=== PATIENT | male | born 1970 | race Caucasian/White ===

== ENCOUNTER 2017-03-07 16:57 | Emergency (ER) | payer OTHER ==
[2017-03-07 17:04] VITALS: RESP 16; TEMP 97.5
--- NOTE | 2017-03-07 17:06 | EDPHY ---
H & P Stated Complaint: Sharp pain under L axilla;also has "lump in throat" HPI/ROS: HPI CHIEF COMPLAINT: Chest pain HISTORY OF PRESENT ILLNESS: This patient is a 46-year-old male significant past medical history for GERD and sinus disease, he presents emergency room with chest discomfort. He describes it as a sharp stabbing pain left side of his chest but additionally he has a pressure dull ache in the center of his chest does not radiate. He also tells me has achiness in bilateral arms. He denies referral pain. Denies shortness of breath. Denies nausea vomiting denies diaphoresis. Denies abdominal pain or neck pain. Main complaint is discomfort in the center of his chest he describes as a lump in his throat or dull ache pressure. This discomfort started around 11:48 a.m. while he was driving. Persistent. Getting worse. Past Medical History: GERD, sinus disease, obesity Past Surgical History: No significant surgical history Social History: Denies daily use of drugs alcohol tobacco products, lives in [place], works in IT. Family History: No significant cardiac family history. No premature cardiac disease. ROS REVIEW OF SYSTEMS: A comprehensive 10 point review of systems is otherwise negative aside from elements mentioned in the history of present illness. Exam Constitutional appears well nontoxic, slightly anxious triage nursing summary reviewed, vital signs reviewed, awake/alert. Eyes normal conjunctivae and sclera, EOMI, PERRLA. HENT normal inspection, atraumatic, moist mucus membranes, no epistaxis, neck supple/ no meningismus, no raccoon eyes. Respiratory clear to auscultation bilaterally, normal breath sounds, no respiratory distress, no wheezing. Cardiovascular rate normal, regular rhythm, no murmur, no edema, distal pulses normal. Gastrointestinal soft, non-tender, no rebound, no guarding, normal bowel sounds, no distension, no pulsatile mass. Genitourinary no CVA tenderness. Musculoskeletal no midline vertebral tenderness, full range of motion, no calf swelling, no tenderness of extremities, no meningismus, good pulses, neurovascularly intact. Skin pink, warm, & dry, no rash, skin atraumatic. Neurologic awake, alert and oriented x 3, AAOx3, moves all 4 extremities equally, motor intact, sensory intact, CN II-XII intact, normal cerebellar, normal vision, normal speech. Psychiatric normal mood/affect. Heme/Lymph/Immune no lymphadenopathy. 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 Re-evaluation: EKG interpretation by me on record in [employer] system. Impression time of EKG 17 30, this is sinus rhythm rate of 71 T-wave abnormality V3. I do not appreciate ST elevation or significant ST depression. QRS is narrow. I do not appreciate acute ischemia on this EKG. 1801: Re-evaluation at this time this patient's chest discomfort went from a 4/ 10 to 2/10 with 1 dose of nitroglycerin. 1849: I did speak with the patient is chest pain-free at this time. He has agreed to stay in the hospital for cardiac evaluation ACS rule out. I have no indication that he is having acute coronary syndrome here at this time. EKG is nonischemic troponin negative D-dimer negative chest x-ray has been reviewed shows cardiomegaly otherwise unremarkable. Patient has receive full-dose aspirin. Chest pain did improve nitroglycerin. Reason for admission is chest pain risk factor for obesity and clinical story. Improved with nitroglycerin. EKG interpretation by me on record in [employer] system. Impression Time of EKG 2118: 2203: This patient is now refusing hospital admission for chest pain evaluation. Had 2 troponins here that are negative. 2 nonischemic EKGs. I still recommend that he gets admitted to the hospital given his story. And risk factors. The hospitalist service did go to see and evaluate the patient however refused hospital admission. I went spoke at length with him about reasons for admission. He understands that he can have great morbidity and great mortality have sudden cardiac or severe neurological dysfunction if he does not get admitted to the hospital. He understands the risk of this. He has capacity make this decision. He still abdomen about leaving. He does understand that he had a preliminary normal cardiac evaluation here in the emergency room however there is still further testing to be done. He does understand if he develops chest pain or shortness of breath or does not feel well tonight to immediately go return to the emergency room. He will need to sign out against medical advice and is fine with this. He understands the risk of signing out against medical advice in the setting of having chest pain. Family at bedside daughters at bedside at bedside understand the risk as well. Since he is not coming to the hospital I do also encouraged him to follow up with his [facility] outpatient. And return if there is any further symptoms or concerns. Or if he changes his mind. Source: Patient - Personal History Current Tetanus Diphtheria and Acellular Pertussis (TDAP): Yes - Medical/Surgical History Other PMH: GERD - Social History Smoking Status: Never smoked Constitutional: Initial Vital Signs Temperature (C) 36.4 C 03/07/17 17:02 Heart Rate 72 03/07/17 17:02 Respiratory Rate 16 03/07/17 17:02 Blood Pressure 114/78 03/07/17 17:02 O2 Sat (%) 96 03/07/17 17:02 O2 Delivery Mode Room Air Allergies/Adverse Reactions: No Known Allergies Allergy (Unverified 03/07/17 17:00) Home Medications: Medication Instructions Recorded Lansoprazole [Lansoprazole 30 mg 30 mg PO BID 03/07/17 tab] Medical Decision Making - Diagnostics Imaging Results: Imaging Impressions Chest X-Ray 03/07/17 17:14 Impression: Cardiomegaly with mild peribronchial thickening, which could be related to mild fluid overload or bronchitis. - Data Points Laboratory Results: Laboratory Results 03/07/17 17:15 03/07/17 17:15 03/07/17 03/07/17 03/07/17 17:15 17:15 17:15 WBC 6.37 10^3/uL 10^3/uL (3.80-9.50) RBC 4.84 10^6/uL 10^6/uL (4.40-6.38) Hgb 15.5 g/dL g/dL (13.7-17.5) Hct 44.5 % % (40.0-51.0) MCV 91.9 fL fL (81.5-99.8) MCH 32.0 pg pg (27.9-34.1) MCHC 34.8 g/dL g/dL (32.4-36.7) RDW 12.1 % % (11.5-15.2) Plt Count 266 10^3/uL 10^3/uL (150-400) MPV 9.4 fL fL (8.7-11.7) Neut % (Auto) 58.4 % % (39.3-74.2) Lymph % (Auto) 27.6 % % (15.0-45.0) [place] % (Auto) 10.5 % % (4.5-13.0) Eos % (Auto) 2.7 % % (0.6-7.6) Baso % (Auto) 0.5 % % (0.3-1.7) Nucleat RBC Rel Count 0.0 % % (0.0-0.2) Absolute Neuts (auto) 3.72 10^3/uL 10^3/uL (1.70-6.50) Absolute Lymphs (auto) 1.76 10^3/uL 10^3/uL (1.00-3.00) Absolute Monos (auto) 0.67 10^3/uL 10^3/uL (0.30-0.80) Absolute Eos (auto) 0.17 10^3/uL 10^3/uL (0.03-0.40) Absolute Basos (auto) 0.03 10^3/uL 10^3/uL (0.02-0.10) Absolute Nucleated RBC 0.00 10^3/uL 10^3/uL (0-0.01) Immature Gran % 0.3 % % (0.0-1.1) Immature Gran # 0.02 10^3/uL 10^3/uL (0.00-0.10) PT 13.2 SEC SEC (12.0-15.0) INR 1.01 (0.83-1.16) APTT 27.8 SEC SEC (23.0-38.0) D-Dimer 0.32 ug/mLFEU ug/mLFEU (0.00-0.50) Sodium 142 mEq/L mEq/L (134-144) Potassium 3.6 mEq/L mEq/L (3.5-5.2) Chloride 107 mEq/L mEq/L (97-110) Carbon Dioxide 23 mEq/l mEq/l (22-31) Anion Gap 12 mEq/L mEq/L (8-16) BUN 16 mg/dL mg/dL (7-23) Creatinine 1.1 mg/dL mg/dL (0.7-1.3) Estimated GFR > 60 Glucose 101 mg/dL H mg/dL (70-100) Calcium 9.0 mg/dL mg/dL (8.5-10.4) Magnesium 2.0 mg/dL mg/dL (1.6-2.3) Total Bilirubin 0.6 mg/dL mg/dL (0.1-1.4) Conjugated Bilirubin 0.2 mg/dL mg/dL (0.0-0.5) Unconjugated Bilirubin 0.4 mg/dL mg/dL (0.0-1.1) AST 24 IU/L IU/L (17-59) ALT 43 IU/L IU/L (21-72) Alkaline Phosphatase 75 IU/L IU/L (38-126) Creatine Kinase 93 IU/L IU/L (0-224) CK-MB (CK-2) Fraction 0.25 ng/mL ng/mL (0-3.19) Troponin I < 0.012 ng/mL ng/mL (0-0.034) NT-Pro-B Natriuret Pep 36 pg/mL pg/mL (0-125) Total Protein 7.0 g/dL g/dL (6.3-8.2) Albumin 4.0 g/dL g/dL (3.5-5.0) Lipase 96.0 IU/L IU/L (23-300) Medications Given: Discontinued Medications Aspirin (Aspirin) 324 mg PO EDNOW ONE Stop: 03/07/17 17:14 Last Admin: 03/07/17 17:33 Dose: 324 mg Sodium Chloride (Ns) 1,000 mls @ 0 mls/hr IV ONCE ONE; Wide Open PRN Reason: Protocol Stop: 03/07/17 17:14 Last Admin: 03/07/17 17:32 Dose: 1,000 mls Nitroglycerin (Nitrostat) 0.4 mg SL Q5M PRN PRN Reason: Chest Pain Stop: 03/07/17 17:24 Last Admin: 03/07/17 18:03 Dose: 0.4 mg Departure - Departure Disposition: Against Medical Advice Clinical Impression: Chest pain Qualifiers: Chest pain type: unspecified Qualified Code(s): R07.9 - Chest pain, unspecified Condition: Fair
[2017-03-07] MEDS ORDERED: NS 1,000 ML IV ONE (17:13)
[2017-03-07] MEDS ORDERED: ASPIRIN 81 MG CHEWABLE TAB PO ONE (17:13)
[2017-03-07] MEDS ORDERED: NITROGLYCERIN 0.4 MG BTL SL ONE (17:25)
--- NOTE | 2017-03-07 17:31 | CPEKG ---
Heart Rate: 71 RR Interval: 845 P-R Interval: 160 QRSD Interval: 102 QT Interval: 368 QTC Interval: 400 P [place]: 31 QRS [place]: -18 T Wave [place]: 3 EKG Severity - BORDERLINE ECG - EKG Impression: SINUS RHYTHM EKG Impression: BORDERLINE LEFT AXIS DEVIATION EKG Impression: TALL R WAVE IN V2, CONSIDER RVH OR PMI Electronically Signed By: Daniel Grider 10-Mar-2017 06:12:03
[2017-03-07] MEDS: NITROGLYCERIN 0.4 MG BTL SL PRN ×2 (17:33→18:03)
[2017-03-07 17:34] LABS: % IMMATURE GRANULYOCYTES 0.3 % (0.0-1.1); ABSOLUTE IMMATURE GRANULOCYTES 0.02 10^3/uL (0.00-0.10); ADD DIFF? NO; ADD MORPH? NO; ADD SCAN? NO; ATYPICAL LYMPHOCYTE FLAG 10 (0-99); FRAGMENT RBC FLAG 0 (0-99); HEMATOCRIT 44.5 % (40.0-51.0); HEMOGLOBIN 15.5 g/dL (13.7-17.5); LEFT SHIFT FLG 0 (0-99); LIPEMIA HEMOLYSIS FLAG 90 (0-99); MEAN CELL HEMOGLOBIN CONCENTR. 34.8 g/dL (32.4-36.7); MEAN CELL VOLUME 91.9 fL (81.5-99.8); MEAN PLATELET VOLUME 9.4 fL (8.7-11.7); PLATELET CLUMPS FLAG 0 (0-99); PLATELET COUNT 266 10^3/uL (150-400); RED BLOOD CELL COUNT 4.84 10^6/uL (4.40-6.38); RED CELL DISTRIBUTION WIDTH 12.1 % (11.5-15.2)
[2017-03-07 17:42] LABS: APTT 27.8 SEC (23.0-38.0); INR 1.01 (0.83-1.16); PROTIME(PATIENT) 13.2 SEC (12.0-15.0)
[2017-03-07 17:50] LABS: ALANINE AMINOTRANSFERASE 43 IU/L (21-72); ALKALINE PHOSPHATASE 75 IU/L (38-126); ANION GAP 12 mEq/L (8-16); ASPARTATE AMINOTRANSFERASE 24 IU/L (17-59); BILIRUBIN,TOTAL 0.6 mg/dL (0.1-1.4); BILIRUBIN-CONJUGATED 0.2 mg/dL (0.0-0.5); BILIRUBIN-UNCONJUGATED 0.4 mg/dL (0.0-1.1); CARBON DIOXIDE 23 mEq/l (22-31); CHLORIDE 107 mEq/L (97-110); CREATININE 1.1 mg/dL (0.7-1.3); GLOMERULAR FILTRATION RATE > 60; GLUCOSE 101 mg/dL (70-100); POTASSIUM 3.6 mEq/L (3.5-5.2); SODIUM 142 mEq/L (134-144)
[2017-03-07 18:02] LABS: CREATINE KINASE-MB FRACTION 0.25 ng/mL (0-3.19); TROPONIN I < 0.012 ng/mL (0-0.034)
--- NOTE | 2017-03-07 21:21 | CPEKG ---
Heart Rate: 66 RR Interval: 909 P-R Interval: 172 QRSD Interval: 106 QT Interval: 396 QTC Interval: 415 P [place]: 37 QRS [place]: -16 T Wave [place]: 0 EKG Severity - ABNORMAL ECG - EKG Impression: SINUS RHYTHM EKG Impression: INCOMPLETE RIGHT BUNDLE BRANCH BLOCK Electronically Signed By: Daniel Grider 10-Mar-2017 06:11:49
[2017-03-07 22:17] VITALS: BP 113/71; PULSE 80; O2SAT 95
== END 2017-03-07 22:16 | disposition left against medical advice (07) ==
LOC: UNDOADMOB 18:48
DX: R07.9 Chest pain, unspecified (principal); E86.9 Volume depletion, unspecified